=== PATIENT | male | born 1995 | race African-American/Black ===

== ENCOUNTER 2019-08-16 18:39 | Emergency (ER) | payer OTHER ==
[~2019-08-16] VITALS: Ht 172.7 cm; Wt 60.5 kg
[2019-08-16 18:45] VITALS: BP 136/81
== END 2019-08-16 22:13 | disposition left against medical advice (07) ==
LOC: EMS 18:40
DX: R21 Rash and other nonspecific skin eruption (principal); Z53.21 Procedure and treatment not carried out due to patient leaving prior to being seen by health care provider